=== PATIENT | female | born 1985 | race Caucasian/White ===

== ENCOUNTER 2021-07-18 17:33 | Emergency (ER) | payer OTHER ==
[2021-07-18 18:35] VITALS: RESP 18; TEMP 98.3
[2021-07-18] MEDS ORDERED: MAG HYDROX/AL HYDROX/SIMETH 30 ML, HYOSCYAMINE ELIXIR 10 ML, LIDOCAINE VISCOUS 2% 10 ML PO STA ×3 (19:39)
--- NOTE | 2021-07-18 19:42 | ED ---
General Adult HPI - General Chief complaint: Abdominal Pain Stated complaint: N/V,Abd.Pain,Urgent Care sent pt in Time Seen by Provider: 07/18/21 19:17 Source: patient Mode of arrival: ambulatory Limitations: no limitations - History of Present Illness Initial comments: Dictation was produced using [employer] dictation software. please excuse any gramm atical, word or spelling errors. Chief Complaint: 35-year-old female presents to the emergency department for concerns of pancreatitis History of Present Illness: Patient 35-year-old female she was sent from the nearby urgent care for concerns of pancreatitis. Patient states for the last 3- 4 days she's been having epigastric and right upper quadrant abdominal pain that radiates to the back. Patient has any postprandial exacerbations. States that spent constant for the last 3-4 days per she is status post cholecystectomy last year. Hasn't had any issues since. She denies any history of liver disease. She's never had pancreatitis in the past. She states that she does have symptoms of reflux last 4-5 days. Denies any nausea vomiting. No diarrhea. The ROS documented in this emergency department record has been reviewed and confirmed by me. Those systems with pertinent positive or negative responses have been documented in the HPI. All other systems are other negative and/or noncontributory. PHYSICAL EXAM: General Impression: Alert and oriented x3, not in acute distress HEENT: Normocephalic atraumatic, extra-ocular movements intact, pupils equal and reactive to light bilaterally, mucous membranes moist. Cardiovascular: Heart regular rate and rhythm Chest: Able to complete full sentences, no retractions, no tachypnea Abdomen: abdomen soft, tenderness to palpation to the epigastric right upper quadrant, worse in the epigastric area, non-distended, no organomegaly Musculoskeletal: Pulses present and equal in all extremities, no peripheral edema Motor: no focal deficits noted Neurological: CN II-XII grossly intact, no focal motor or sensory deficits noted Skin: Intact with no visualized rashes Psych: Normal affect and mood ED course: 35-year-old female presents to the emergency department for epigastric abdominal pain 3-4 days. Vital signs upon arrival are within acceptable limits. Patient's symptomatology does not suggest anything obvious. Return evaluation obtained. CBC unremarkable. Potassium 3.3. ALT is 41, rest of labs unremarkable. Patient given GI cocktail. Patient's reevaluated bedside at 8:40 PM. EKG interpretation: Ventricular rate 56, sinus bradycardia,. Interval 156, QS 90, QTC 400. No WA prolongation, no QTC prolongation, no ST or T-wave changes noted. Overall, this EKG is unremarkable Of her workup were discussed with patient. She is mildly anxious at the bedside and is worried that there is something possibly wrong despite having on concerning blood work. She did report significant relief after GI cocktail although short-lived. Computed tomography scan showed hepatic steatosis previou s likely the cause for her symptoms considering her history of present illness. Patient given Tylenol number threes for pain. Told to follow-up with primary care doctor for outpatient management of fatty liver. - Related Data Home Medications Medication Instructions Recorded Confirmed FLUoxetine HCL [PROzac] 20 mg PO DAILY 07/18/21 07/18/21 Norgestimate-Ethinyl Estradiol 1 tab PO HS 07/18/21 07/18/21 [Sprintec 28 Day Tablet] buPROPion XL [Wellbutrin XL] 150 mg PO DAILY 07/18/21 07/18/21 hydroCHLOROthiazide [Hydrodiuril] 25 mg PO DAILY 07/18/21 07/18/21 Allergies Allergy/AdvReac Type Severity Reaction Status Date / Time Penicillins AdvReac Rash/Hives Verified 07/18/21 20:02 on entire body Review of Systems ROS Statement: Those systems with pertinent positive or pertinent negative responses have been documented in the HPI. ROS Other: All systems not noted in ROS Statement are negative. Past Medical History Past Medical History: Hypertension History of Any Multi-Drug Resistant Organisms: None Reported Past Surgical History: Cholecystectomy Past Psychological History: Depression Smoking Status: Never smoker Past Alcohol Use History: Occasional Past Drug Use History: None Reported General Exam Limitations: no limitations Course Vital Signs 07/18/21 18:29 Temperature 98.3 F Pulse Rate 67 Respiratory 18 Rate Blood Pressure 163/118 O2 Sat by Pulse 98 Oximetry Medical Decision Making - Lab Data Result diagrams: 07/18/21 19:42 07/18/21 19:42 Lab Results 07/18/21 07/18/21 Range/Units 19:42 19:42 WBC 7.3 (3.8-10.6) k/uL RBC 4.98 (3.80-5.40) m/uL Hgb 15.4 (11.4-16.0) gm/dL Hct 43.8 (34.0-46.0) % MCV 87.9 (80.0-100.0) fL MCH 30.8 (25.0-35.0) pg MCHC 35.1 (31.0-37.0) g/dL RDW 13.2 (11.5-15.5) % Plt Count 292 (150-450) k/uL MPV 7.1 Neutrophils % 49 % Lymphocytes % 42 % Monocytes % 4 % Eosinophils % 2 % Basophils % 1 % Neutrophils # 3.6 (1.3-7.7) k/uL Lymphocytes # 3.1 (1.0-4.8) k/uL Monocytes # 0.3 (0-1.0) k/uL Eosinophils # 0.1 (0-0.7) k/uL Basophils # 0.0 (0-0.2) k/uL Sodium 136 L (137-145) mmol/L Potassium 3.3 L (3.5-5.1) mmol/L Chloride 102 (98-107) mmol/L Carbon Dioxide 25 (22-30) mmol/L Anion Gap 9 mmol/L BUN 14 (7-17) mg/dL Creatinine 0.95 (0.52-1.04) mg/dL Est GFR (CKD-EPI)AfAm >90 (>60 ml/min/1.73 sqM) Est GFR (CKD-EPI)NonAf 79 (>60 ml/min/1.73 sqM) Glucose 116 H (74-99) mg/dL Calcium 9.5 (8.4-10.2) mg/dL Total Bilirubin 0.8 (0.2-1.3) mg/dL AST 31 (14-36) U/L ALT 41 H (4-34) U/L Alkaline Phosphatase 76 (38-126) U/L Total Protein 7.8 (6.3-8.2) g/dL Albumin 4.5 (3.5-5.0) g/dL Lipase 90 (23-300) U/L HCG, Quant <2.4 mIU/mL Disposition Clinical Impression: Fatty liver, Abdominal pain Disposition: HOME SELF-CARE Condition: Fair Instructions (If sedation given, give patient instructions): Non-Alcoholic Fatty Liver Disease (ED) Is patient prescribed a controlled substance at d/c from ED?: No Referrals: Nonstaff,Physician [Primary Care Provider] - 1-2 days
[2021-07-18 19:48] LABS: Basophils % (A) 1 %; Eosinophils # (A) 0.1 k/uL (0-0.7); Eosinophils % (A) 2 %; HCT 43.8 % (34.0-46.0); HGB 15.4 gm/dL (11.4-16.0); Lymphocytes # (A) 3.1 k/uL (1.0-4.8); Lymphocytes % (A) 42 %; MCH 30.8 pg (25.0-35.0); MCHC 35.1 g/dL (31.0-37.0); MCV 87.9 fL (80.0-100.0); Mean Platelet Volume 7.1; Monocytes # (A) 0.3 k/uL (0-1.0); Monocytes % (A) 4 %; Neutrophils # (A) 3.6 k/uL (1.3-7.7); Neutrophils % (A) 49 %; Platelet Count 292 k/uL (150-450); RBC 4.98 m/uL (3.80-5.40); RDW 13.2 % (11.5-15.5); WBC 7.3 k/uL (3.8-10.6)
[2021-07-18 20:16] LABS: ALT 41 U/L (4-34); AST 31 U/L (14-36); African American GFR (CKD) >90 (>60 ml/min/1.73 sqM); Albumin 4.5 g/dL (3.5-5.0); Alkaline Phosphatase 76 U/L (38-126); Anion Gap 9 mmol/L; Blood Urea Nitrogen 14 mg/dL (7-17); Calcium 9.5 mg/dL (8.4-10.2); Carbon Dioxide 25 mmol/L (22-30); Chloride 102 mmol/L (98-107); Glucose 116 mg/dL (74-99); Lipase 90 U/L (23-300); Non-African American GFR(CKD) 79 (>60 ml/min/1.73 sqM); Potassium 3.3 mmol/L (3.5-5.1); Sodium 136 mmol/L (137-145); Total Bilirubin 0.8 mg/dL (0.2-1.3); Total Protein 7.8 g/dL (6.3-8.2)
[2021-07-18 20:33] LABS: HCG,Quantitative Serum <2.4 mIU/mL
--- NOTE | 2021-07-18 21:34 | CT ---
EXAMINATION TYPE: CT abdomen pelvis w con DATE OF EXAM: 07/18/2021 COMPARISON: None HISTORY: n/v CT DLP: 2020.8 mGycm Automated exposure control for dose reduction was used. CONTRAST: Performed with IV Contrast, patient injected with 100 mL of Isovue 300. Images obtained from the diaphragm to the floor the pelvis with IV contrast. The lung bases are clear of consolidation. There is mild subsegmental atelectasis right lung base. Th ere is diffuse fatty infiltration of the liver. Heart size is normal. There are no hilar masses. There are clips from cholecystectomy. Spleen is intact. There is no pancreatic mass. The stomach is i ntact. There is no adrenal mass. Kidneys show satisfactory contrast opacification. The ureters are not dilat ed. Bladder distends smoothly. Delayed images show normal renal excretion. There is no retroperitonea l adenopathy. No pelvic mass. Uterus is anteverted. No free fluid in the pelvis. There is no inguinal hernia. Appendix is small. There is no mesenteric edema. No ascites or free air. No bowel obstruction. Lumbar vertebra appear intact. No compression fracture. The bony pelvis is intact. Hip joints appear intact . IMPRESSION: Moderate fatty infiltration of the liver. No acute abnormality of the abdomen and pelvis.
[2021-07-18] MEDS ORDERED: ACET/COD 300 MG/30 MG STARTER PACK 6 TAB BTL PO STA (21:56)
[2021-07-18 22:15] VITALS: BP 133/82; PULSE 61
== END 2021-07-18 22:17 | disposition home or self-care (01) ==
LOC: EC 17:33
DX: K76.0 Fatty (change of) liver, not elsewhere classified (principal); I10 Essential (primary) hypertension; F32.A Depression, unspecified; Z79.899 Other long term (current) drug therapy
CPT/HCPCS: 36415; 93005; 80053; 83690; 85025; 84702; 74177; 99284; Q9967